=== PATIENT | female | born 1940 | race Caucasian/White ===

== ENCOUNTER → 2016-06-17 | Outpatient (CLI) | payer MEDICARE, OTHER | END | disposition home or self-care (01) | LOC: GMAL 11:07 | PROVIDERS: ATTEND Family Medicine | DX: D51.3 Other dietary vitamin B12 deficiency anemia (principal); E03.9 Hypothyroidism, unspecified; E55.9 Vitamin D deficiency, unspecified ==

== ENCOUNTER → 2016-06-27 | Outpatient (CLI) | payer MEDICARE, OTHER ==
--- NOTE | 2016-06-27 16:44 | MRI ---
EXAM DESCRIPTION: MRI Cervical Spine CLINICAL HISTORY: CERVICALGIA COMPARISON: None. TECHNIQUE: Multiplanar MRI of the cervical spine was performed without contrast. FINDINGS: Cervical vertebral bodies show normal height without compression deformity. Straightening of the normal cervical lordosis. 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 There is desiccation of the disc spaces throughout the cervical spine. Craniocervical junction is maintained. Normal basilar flow void is seen. Probable mild degenerative increased T2 signal changes in the visualized bishnu are noted. Spinal cord shows normal MRI signal. C1-2 and craniocervical junction Unremarkable C2-3 Mild left greater than right facet hypertrophic and degenerative changes are seen. Moderate left and mild right foraminal encroachment is noted. C3-4 Mild left greater than right facet hypertrophic and degenerative changes are seen contributing to moderate to severe left and mild right foraminal encroachment. C4-5 There is mild diffuse disc space narrowing. Mild bilateral facet hypertrophy is seen. Mild left foraminal encroachment seen. C5-6 There is mild diffuse disc space narrowing. A 2 mm broad-based ventral ridging disc osteophyte complex with uncovertebral joint hypertrophy is seen. There is posterior ligamentum flavum thickening. Obliteration of CSF signal from around the spinal cord is noted. There is flattening of the dorsal and ventral surface of the spinal cord that measures 4 mm AP centrally consistent with moderate to severe spinal canal stenosis and mild cord compression. Uncovertebral joint hypertrophy bilaterally contributes to moderate to severe bilateral foraminal encroachment. C6-7 Mild diffuse disc space narrowing is seen with two 3 mm broad-based ventral ridging disc osteophyte complex and mild ligamentum flavum thickening. There is decreased CSF signal from around the spinal cord that measures 5 mm AP potentially consistent with moderate canal stenosis and mild cord compression. Uncovertebral joint hypertrophy results in severe left greater than right foraminal encroachment. C7-T1 Mild bilateral facet hypertrophy without significant spinal canal stenosis or foraminal encroachment. 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 Multilevel disc degenerative changes and facet arthropathy of the cervical spine is seen. Disc disease and ligamentum flavum thickening contributes to at least moderate to severe spinal canal stenosis with cord compression at C5-6. Disc disease and ligamentum flavum thickening contributes to moderate spinal canal stenosis and mild cord compression at C6-7. Multilevel foraminal encroachment is seen as described level by level above secondary to disc disease and facet arthropathy. Electronically signed by: Koko Osborne MD 06/27/2016 4:43 PM [facility]
== END | disposition home or self-care (01) ==
LOC: MRI 09:43
PROVIDERS: ATTEND Family Medicine
DX: M54.2 Cervicalgia (principal)

== ENCOUNTER → 2016-09-20 | Outpatient (CLI) | payer MEDICARE, OTHER | END | disposition home or self-care (01) | LOC: GMAL 14:19 | PROVIDERS: ATTEND Family Medicine | DX: E03.9 Hypothyroidism, unspecified (principal) ==

== ENCOUNTER → 2017-03-29 | Outpatient (CLI) | payer MEDICARE, OTHER ==
--- NOTE | 2017-03-31 11:09 | MAM ---
EXAM DESCRIPTION: 3D Screening BILATERAL : Digital Mammography. CLINICAL HISTORY: 77 years Female SCREENING . No complaints. No family history breast cancer. Postmenopausal. Taking HRT 5 or more years ago. COMPARISON: 2-D digital screening bilateral studies 01/18/2016 and 01/15/2015. Report from prior examination also reviewed. TECHNIQUE: Bilateral CC and MLO projection full-field images, 3-D tomosynthesis digital mammographic technique. Also bilateral synthesized CC/ MLO full-field images. CAD not utilized. FINDINGS: The breast parenchymal density pattern is: Scattered areas of fibroglandular density. No skin thickening or nipple retraction right axillary lymph node. Bilateral solitary microcalcifications. No focal, stellate mass or density, focal asymmetry , and no suspicious microcalcifications bilaterally. Stable mammograms compared to prior studies, taking into account differences in mammographic technique IMPRESSION: BI-RADS CATEGORY: 2 - BENIGN FINDINGS. FOLLOW UP: Routine digital bilateral screening, one year interval from March 2017. Written communication explaining the IMPRESSION and follow-up, will be mailed to the patient and referring health care provider. According to the [employer], yearly mammograms are recommended starting at age 40 and continuing as long as a woman is in good health. Any breast change noted on a breast self-exam should be reported promptly to the patient's healthcare provider. Breast MRI is recommended for women with an approximately 20-25% or greater lifetime risk of breast cancer, including women with a strong family history of breast or ovarian cancer and women who have been treated for Hodgkin's disease. A negative mammographic report should not delay tissue diagnosis in patients with significant clinical history or physical findings. Extremely dense breast tissue limits the sensitivity of digital mammography. Electronically signed by: Denys Fowler MD 03/31/2017 11:08 AM [facility]
== END ==
LOC: MAMMO 12:58
PROVIDERS: ATTEND Family Medicine
DX: Z12.31 Encounter for screening mammogram for malignant neoplasm of breast (principal)
CPT/HCPCS: 77063; G0202

== ENCOUNTER → 2017-08-14 | Outpatient (CLI) | payer MEDICARE, OTHER | LOC: GMAL 13:12 | PROVIDERS: ATTEND Family Medicine | DX: D51.3 Other dietary vitamin B12 deficiency anemia (principal); E55.9 Vitamin D deficiency, unspecified ==

== ENCOUNTER 2017-12-27 05:24 | Day surgery (SDC) | payer MEDICARE, OTHER ==
[2017-12-27] MEDS ORDERED: LACTATED RINGERS 1,000 ML ONE (07:28)
--- NOTE | 2017-12-27 09:45 | OP ---
DATE OF PROCEDURE: 12/27/17 PREOPERATIVE DIAGNOSIS: 1. History of polyps with last colonoscopy in 2011. 2. Incidental indications of constipation, bloating and change in bowel habits. POSTOPERATIVE DIAGNOSIS: 1. Colonic polyps. 2. Diverticulosis PROCEDURE: 1. Colonoscopy plus polypectomies. SURGEON: Louis Son MD. COMPLICATION: There was no true complication, but while sedated, the patient had some mild coughing and retching, but her oxygen saturation was fine throughout the procedure and she was in no cardiopulmonary distress. At the end of the procedure, the patient was fine. BLOOD LOSS: Minimal related to the procedure. MEDICATIONS: Monitored anesthesia care. DESCRIPTION OF PROCEDURE: Informed consent was obtained prior to sedation. The preprocedure cardiopulmonary assessment was satisfactory. The patient was placed in the left lateral decubitus position and was sedated. A digital rectal exam was unremarkable. The tip of the Olympus colonoscope was inserted in the rectum and guided over to the cecum. The cecum was identified by locating the ileocecal valve and appendiceal orifice. There was a little bit of fluid scattered in the colon along with some yellowish foam. I irrigated and suctioned this away. The mucosa of the cecum, ascending colon, hepatic flexure, transverse colon, splenic flexure, descending colon and sigmoid colon was examined. Direct and retroflex views of the rectum were obtained. The ascending colon was also examined with direct and retroflex views due to retroflexion in the cecum. The patient had multiple polyps. They were all sessile and ranged from 2 to 6 mm in size. They were all removed with a cold snare. There were 2 in the ascending colon, 2 in the transverse colon and 6 in the rectosigmoid. Again, they were all removed with a cold snare and recovered. There were sigmoid diverticula. Otherwise, the colonoscopy was unremarkable. RECOMMENDATIONS: 1. Followup the polyp pathology. 2. I do not think she will need a followup colonoscopy for screening purposes due to her age. 3. I would like to see her back in the office in [place] in January. We will see if we can help her with her altered bowel habits, bloating and constipation if these are still issues for her. #[id number] cc: Adelso Alas MD MTDD
[2017-12-27 09:59] VITALS: BP 125/73; TEMP 96.2; O2SAT 89
[2017-12-27] MEDS ORDERED: PROPOFOL 200 MG/20 ML VIAL IV ONE (10:00)
[2017-12-27] MEDS ORDERED: LIDOCAINE 1% 10 ML VIAL INJ ONE (10:00)
== END 2017-12-27 10:15 | disposition home or self-care (01) ==
LOC: AMB 05:24
PROVIDERS: ATTEND Internal Medicine Gastroenterology
DX: Z09 Encounter for follow-up examination after completed treatment for conditions other than malignant neoplasm (principal); D12.7 Benign neoplasm of rectosigmoid junction; D12.2 Benign neoplasm of ascending colon; D12.3 Benign neoplasm of transverse colon; K57.30 Diverticulosis of large intestine without perforation or abscess without bleeding; R19.4 Change in bowel habit; K59.00 Constipation, unspecified; R14.0 Abdominal distension (gaseous); K21.9 Gastro-esophageal reflux disease without esophagitis; J44.9 Chronic obstructive pulmonary disease, unspecified; F17.210 Nicotine dependence, cigarettes, uncomplicated; I10 Essential (primary) hypertension; I25.10 Atherosclerotic heart disease of native coronary artery without angina pectoris; Z86.010 Personal history of colon polyps; Z88.8 Allergy status to other drugs, medicaments and biological substances; Z79.899 Other long term (current) drug therapy
CPT/HCPCS: 00811; 45385; 88305; J3490; J7120

== ENCOUNTER → 2018-03-26 | Outpatient (CLI) | payer MEDICARE, OTHER | LOC: GMAL 11:47 | PROVIDERS: ATTEND Family Medicine | DX: E03.9 Hypothyroidism, unspecified (principal) ==

== ENCOUNTER → 2018-04-02 | Outpatient (CLI) | payer MEDICARE, OTHER ==
--- NOTE | 2018-04-03 17:50 | MAM ---
EXAM DESCRIPTION: 3D Screening BILATERAL : Digital Mammography. CLINICAL HISTORY: 78 years Female SCREENING . No complaints. No personal or family history of breast cancer. Childbirth. Postmenopausal 27 years. Taken HRT 5 or more years ago.. Lifetime risk of developing breast cancer (Tyrer-Cuzick model)(%): 2.4. COMPARISON: Bilateral screening digital breast tomosynthesis 03/29/2017.. TECHNIQUE: Bilateral CC and MLO projection full-field images, digital tomosynthesis mammographic technique. Bilateral digital 2-D full-field MLO images. CAD not available for tomosynthesis or 2-D images. FINDINGS: The breast parenchymal density pattern is: Scattered areas of fibroglandular density. No skin thickening or nipple retraction. Bilateral solitary microcalcifications. Focal asymmetry in the middle third of the left breast at the 12:00 position, 7 cm from the nipple. Not seen on the prior study. Not associated with microcalcifications. No new focal, stellate mass or density, focal asymmetry , and no suspicious microcalcifications right breast. IMPRESSION: BI-RADS CATEGORY: 0 - INCOMPLETE- Need additional imaging evaluation. FOLLOW-UP: Recall for additional imaging: Targeted left breast ultrasound of the region of interest. Additional diagnostic mammographic imaging of the left breast if indicated by ultrasound images.. Written communication concerning the IMPRESSION and Follow-up, will be mailed to the patient and referring health care provider. Electronically signed by: Denys Fowler MD 04/03/2018 5:48 PM [facility]
== END ==
LOC: MAMMO 11:00
PROVIDERS: ATTEND Family Medicine
DX: Z12.31 Encounter for screening mammogram for malignant neoplasm of breast (principal)

== ENCOUNTER → 2018-04-12 | Outpatient (CLI) | payer MEDICARE, OTHER ==
--- NOTE | 2018-04-12 18:56 | US ---
EXAM DESCRIPTION: Breast,Left: Ultrasound CLINICAL HISTORY: 78 yearsFemaleABNORMAL MAMMO COMPARISON: Digital screening tomosynthesis bilateral breasts 04/02/2018. No diagnostic mammogram was performed today. TECHNIQUE: Transcutaneous scanning of the upper mid left breast utilizing renee-scale and Doppler modes. Scanning performed by the frickertron checker only. Remote observation by Dr. Fowler. FINDINGS: Scanning upper middle third left breast. Emphasis on the 12:00 to 1:00 sector of the breast. Heterogeneous fibroglandular and fatty echotexture. No dominant solid mass or distinct cyst. No large calcifications or parenchymal edema. No overlying skin changes. No abnormal vascularity. IMPRESSION: Benign exam. BIRAD CATEGORY: 2 BENIGN FINDINGS. RECOMMENDATIONS: FOLLOW UP: Return to routine digital bilateral mammographic screening, one year interval from March 2018. The FINDINGS and the FOLLOW-UP plan were reviewed in person with the patient by the technologist, after the examination. Written communication explaining the IMPRESSION and FOLLOW-UP will be mailed to the patient and referring care provider. According to the [employer], yearly mammograms are recommended starting at age 40 and continuing as long as a woman is in good health. Any breast change noted on a breast self-exam should be reported promptly to the patient's healthcare provider. Breast MRI is recommended for women with an approximately 20-25% or greater lifetime risk of breast cancer, including women with a strong family history of breast or ovarian cancer and women who have been treated for Hodgkin's disease. A negative mammographic report should not delay tissue diagnosis in patients with significant clinical history or physical findings. Extremely dense breast tissue limits the sensitivity of digital mammography. Electronically signed by: Denys Fowler MD 04/12/2018 6:55 PM [employer]
== END ==
LOC: US 11:00
PROVIDERS: ATTEND Family Medicine
DX: R92.8 Other abnormal and inconclusive findings on diagnostic imaging of breast (principal)

== ENCOUNTER → 2019-04-09 | Outpatient (CLI) | payer MEDICARE, OTHER ==
--- NOTE | 2019-04-11 16:45 | MAM ---
EXAM DESCRIPTION: 3D Screening BILATERAL : Digital Mammography. CLINICAL HISTORY: 79 years Female ANNUAL SCREENING . No complaints. No personal or family history of breast cancer. Menarche age 13. Childbirth age 19. Postmenopausal age 51. HRT 5 or more years ago.. Lifetime risk of developing breast cancer (Tyrer-Cuzick model)(%): 2.2. COMPARISON: Bilateral screening digital breast tomosynthesis third of March 2018. Also March 2017. Ultrasound left breast March 2018. TECHNIQUE: Bilateral CC and MLO projection full-field images, digital tomosynthesis mammographic technique. Bilateral digital 2-D full-field MLO images. CAD not available for tomosynthesis or 2-D images. FINDINGS: The breast parenchymal density pattern is: Scattered areas of fibroglandular density. No skin thickening or nipple retraction. Anterior bilateral solitary microcalcifications. Bilateral fibroglandular pattern is stable. No new focal, stellate mass or density, focal asymmetry , and no suspicious microcalcifications bilaterally. Stable mammograms compared to prior study. IMPRESSION: Benign exam. BIRAD CATEGORY: 2 BENIGN FINDINGS. RECOMMENDATIONS: FOLLOW UP: Routine digital bilateral mammographic screening, one year interval from March 2018. Written communication explaining the IMPRESSION and follow-up, will be mailed to the patient and referring health care provider. According to the [employer], yearly mammograms are recommended starting at age 40 and continuing as long as a woman is in good health. Any breast change noted on a breast self-exam should be reported promptly to the patient's healthcare provider. Breast MRI is recommended for women with an approximately 20-25% or greater lifetime risk of breast cancer, including women with a strong family history of breast or ovarian cancer and women who have been treated for Hodgkin's disease. A negative mammographic report should not delay tissue diagnosis in patients with significant clinical history or physical findings. Extremely dense breast tissue limits the sensitivity of digital mammography. Electronically signed by: Denys Fowler MD 04/11/2019 4:43 PM [employer]
== END ==
LOC: MAMMO 11:06
PROVIDERS: ATTEND Family Medicine
DX: Z12.31 Encounter for screening mammogram for malignant neoplasm of breast (principal)

== ENCOUNTER 2019-04-26 12:44 | Inpatient (IN) | payer MEDICARE, OTHER ==
[2019-04-26] MEDS ORDERED: IPRATROPIUM/ALBUTEROL 3 ML VIAL NEB ONE (12:53)
[2019-04-26] MEDS ORDERED: PIPERACILLIN/TAZOBACTAM 4.5 GM in SODIUM CHLORIDE 0.9% 100ML 100 ML IVPB ONE (13:35)
[2019-04-26] MEDS ORDERED: VANCOMYCIN HCL INJ 1,000 MG in SODIUM CHLORIDE 0.9% 250ML 250 ML IVPB SCH (14:00)
[2019-04-26] MEDS ORDERED: SODIUM CHLORIDE 0.9% 100ML 100 ML IVPB ONE (14:03)
[2019-04-26] MEDS ORDERED: PIPERACILLIN/TAZOBACTAM 2.25 GM VIAL IVPB ONE (14:03)
[2019-04-26] MEDS ORDERED: ACETAMINOPHEN 500 MG TAB PO ONE (14:21)
--- NOTE | 2019-04-26 14:21 | ED.PDOC ---
History of Present Illness - General Chief Complaint: Respiratory Problem Stated Complaint: difficulty breathing Time Seen by Provider: 04/26/19 12:53 Source: patient, RN notes reviewed, Vital Signs reviewed, family - History of Present Illness Comments: Patient presents for evaluation of worsening SOB and coughing that has been worsening over the past two weeks. She notes that she has had fevers. She states that she has finished steroids and multiple abx. Currently has one more day of azithromycin. She has not felt well and has had more dyspnea with exertion. She denies recent sick contacts or hospitalizations. She was seen at her PCP's office today and noted to be hypoxic in upper 80's while sitting. Timing/Duration: week, getting worse Cough Quality/Degree: moderate, productive cough Improving Factors: nothing Worsening Factors: movement Associated Symptoms: cough Allergies/Adverse Reactions: Allergies Atenolol Allergy (Unknown, Verified 08/07/12 07:56) Atorvastatin [From Lipitor] Allergy (Unknown, Verified 08/07/12 07:56) CI Pigment Blue 63 [From Dexilant] Allergy (Unknown, Verified 12/25/17 14:54) Codeine Allergy (Unknown, Verified 12/25/17 14:54) Dexlansoprazole [From Dexilant] Allergy (Unknown, Verified 12/25/17 14:54) Levofloxacin [From Levaquin] Allergy (Unknown, Verified 12/25/17 14:54) Meperidine [From Demerol HCl] Allergy (Unknown, Verified 12/25/17 14:54) Clarithromycin [From Biaxin] Allergy (Verified 12/25/17 14:54) Home Medications: Ambulatory Orders RX: Budesonide-Formoterol Fumarate [Symbicort 160-4.5 Mcg/Act] 1 aer IN BID PRN 08/06/12 RX: Chlorthalidone [Hygroton] 25 mg PO DAILY 08/06/12 RX: Citalopram Hydrobromide [Celexa] 40 mg PO DAILY 08/06/12 RX: Losartan Potassium [Cozaar] 25 mg PO DAILY 08/06/12 RX: Potassium Chloride Tab [K-Dur] 40 meq PO QAM 08/06/12 RX: Rosuvastatin Calcium [Crestor] 10 mg PO BEDTIME 08/06/12 Albuterol Sulfate [Proair Hfa] 1 puff INH BEDTIME PRN 12/25/17 Hydrocodone-Acetaminophen [[place] 5-325 mg] 1 tab PO Q4H PRN 04/26/19 Levothyroxine Sodium [Levoxyl] 112 mcg PO DAILY 04/26/19 Meloxicam 15 mg PO DAILY 04/26/19 RX: Calcium Citrate 200 mg PO DAILY 04/26/19 RX: Omeprazole 20 mg PO DAILY 04/26/19 Review of Systems - Review of Systems Constitutional: States: chills, fever EENTM: States: nose congestion Respiratory: States: cough, short of breath Gastrointestinal/Abdominal: Denies: constipation, vomiting Genitourinary: Denies: frequency Musculoskeletal: Denies: back pain Skin: Denies: rash Neurological: Denies: headache Past Medical History (General) - Patient Medical History Hx Seizures: No Hx Stroke: No Hx Dementia: No Hx Asthma: Yes Hx of COPD: Yes Hx Cardiac Disorders: Yes Hx Congestive Heart Failure: No Hx Pacemaker: No Hx Hypertension: Yes Hx Diabetes: Yes Hx MRSA: No - Social History Hx Alcohol Use: No Hx Substance Use: No Hx Physical Abuse: No Hx Emotional Abuse: No Family Medical History - Family History Mother Family History: Unknown Physical Exam - Physical Exam General Appearance: Alert, Ill Appearing ENT Exam: nasal congestion Neck: full range of motion, supple, normal inspection Respiratory: no respiratory distress, no accessory muscle use, rhonchi Cardiovascular/Chest: normal peripheral pulses, regular rate, rhythm, no edema Gastrointestinal/Abdominal: non tender, soft Extremity: no pedal edema 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 She met SIRS criteria and given source, patient was septic. She was started on vancomycin and zosyn for failed outpatient pneumonia. CBC was significant for leukocytosis that was slightly elevated. There was hypokalemia and hyponatremia on CMP. She was given 1g Tylenol for fever. Patient will be admitted to the floor for further treatment and management. 04/26/19 14:[address] Adams, who accepted patient. Will place admission orders. - Results/Orders Results/Orders: 04/26/19 13:35 BLOOD CULTURE Stat 04/26/19 14:20 ED Intent to Admit Routine Laboratory Results WBC 12.3 K/mm3 (4.8-10.8) H 04/26/19 13:06 RBC 5.14 M/mm3 (4.20-5.40) 04/26/19 13:06 Hgb 14.9 gm/dL (12.0-16.0) 04/26/19 13:06 Hct 44.1 % (36.0-47.0) 04/26/19 13:06 MCV 85.8 fl (81.0-99.0) 04/26/19 13:06 MCH 28.9 pg (27.0-31.0) 04/26/19 13:06 MCHC 33.7 g/dL (33.0-37.0) 04/26/19 13:06 RDW 13.2 % (11.5-14.5) 04/26/19 13:06 Plt Count 250 K/mm3 (130-400) 04/26/19 13:06 MPV 7.8 fl (7.40-10.4) 04/26/19 13:06 Absolute Neuts (auto) Not Reportable 04/26/19 13:06 Absolute Lymphs (auto) Not Reportable 04/26/19 13:06 Absolute Monos (auto) Not Reportable 04/26/19 13:06 Absolute Eos (auto) Not Reportable 04/26/19 13:06 Neutrophils % Not Reportable 04/26/19 13:06 Neutrophils % (Manual) 72.0 % (42.0-78.0) 04/26/19 13:06 Lymphocytes % Not Reportable 04/26/19 13:06 Lymphocytes % (Manual) 17.0 % 04/26/19 13:06 Monocytes % Not Reportable 04/26/19 13:06 Monocytes % (Manual) 6.0 % 04/26/19 13:06 Eosinophils % Not Reportable 04/26/19 13:06 Basophils % Not Reportable 04/26/19 13:06 Band Neutrophils 5.0 % (0-2) H 04/26/19 13:06 Nucleated RBCs 1.0 % 04/26/19 13:06 Platelet Estimate Normal (NORMAL) 04/26/19 13:06 Normal RBC Morphology Normal rbc morph 04/26/19 13:06 Sodium 131 mmol/L (135-145) L 04/26/19 13:06 Potassium 3.1 mmol/L (3.6-5.0) L 04/26/19 13:06 Chloride 94 mmol/L (101-111) L 04/26/19 13:06 Carbon Dioxide 26 mmol/L (21-31) 04/26/19 13:06 Anion Gap 14.1 (12-18) 04/26/19 13:06 BUN 14 mg/dL (7-18) 04/26/19 13:06 Creatinine 0.89 mg/dL (0.6-1.3) 04/26/19 13:06 BUN/Creatinine Ratio 15.7 (10-20) 04/26/19 13:06 Random Glucose 97 mg/dL (70-105) 04/26/19 13:06 Serum Osmolality 263.0 mOsm/L (275-295) L 04/26/19 13:06 Lactic Acid 1.1 mmol/L (0.5-2.2) 04/26/19 13:06 Calcium 9.1 mg/dL (8.4-10.2) 04/26/19 13:06 Total Bilirubin 0.7 mg/dL (0.2-1.0) 04/26/19 13:06 AST 24 IU/L (10-42) 04/26/19 13:06 ALT 28 IU/L (10-60) 04/26/19 13:06 Alkaline Phosphatase 53 IU/L (42-121) 04/26/19 13:06 Serum Total Protein 6.3 gm/dL (6.4-8.2) L 04/26/19 13:06 Albumin 3.7 g/dl (3.2-5.5) 04/26/19 13:06 Globulin 2.6 gm/dL (2.3-3.5) 04/26/19 13:06 Albumin/Globulin Ratio 1.4 (1.1-1.9) 04/26/19 13:06 Departure - Departure Clinical Impression: Pneumonia, Sepsis, Fever, Leukocytosis, Acute respiratory failure with hypoxia Disposition: Admit Patient Condition: Fair Home Medications: Ambulatory Orders RX: Budesonide-Formoterol Fumarate [Symbicort 160-4.5 Mcg/Act] 1 aer IN BID PRN 08/06/12 RX: Chlorthalidone [Hygroton] 25 mg PO DAILY 08/06/12 RX: Citalopram Hydrobromide [Celexa] 40 mg PO DAILY 08/06/12 RX: Losartan Potassium [Cozaar] 25 mg PO DAILY 08/06/12 RX: Potassium Chloride Tab [K-Dur] 40 meq PO QAM 08/06/12 RX: Rosuvastatin Calcium [Crestor] 10 mg PO BEDTIME 08/06/12 Albuterol Sulfate [Proair Hfa] 1 puff INH BEDTIME PRN 12/25/17 Hydrocodone-Acetaminophen [[place] 5-325 mg] 1 tab PO Q4H PRN 04/26/19 Levothyroxine Sodium [Levoxyl] 112 mcg PO DAILY 04/26/19 Meloxicam 15 mg PO DAILY 04/26/19 RX: Calcium Citrate 200 mg PO DAILY 04/26/19 RX: Omeprazole 20 mg PO DAILY 04/26/19
--- NOTE | 2019-04-26 14:48 | HP ---
SUPERVISING PHYSICIAN: Douglas Reddy M.D. CHIEF COMPLAINT: Difficult breathing. HISTORY OF PRESENT ILLNESS: Ms. Moreno is a 79 year-old female patient that presented to the Emergency Department today from the clinic with worsening shortness of breath and coughing over the last 2 weeks. She has also noted that she has had fevers at home and, in fact, she just finished a steroid pack along with a Z-Johan earlier in the week. She noted that she has not gotten any significant improvement in her symptoms and is noted to be hypoxic on room air in the 80s initially. She was x-rayed in the clinic and based off her hypoxia and the x-ray that showed concerning developing bilateral pneumonia, she was sent for evaluation. Her initial laboratory studies showed that she did have a leukocytosis with a developing left shift and 5% bands. Chemistries showed normal lactic acid. She tested negative for Strep and flu in the clinic. Initial vital signs on presentation to the Emergency Department showed that she was running a fever of 100.5 and satting on room air at 86%. After breathing treatments and on oxygen she was showing 94% saturation at 2 liters. Given the fact that she had failed significant treatment course as an outpatient for pneumonia, she is now going to be admitted for more aggressive parenteral antibiotics and a treatment course for bilateral pneumonia. She was admitted in stable condition. PAST MEDICAL HISTORY: 1. Chronic obstructive pulmonary disease in a current smoker in the form of asthma. 2. Hypertension. 3. Chronic tobacco abuse. 4. Gastroesophageal reflux disease. 5. Osteopenia. 6. Hypothyroidism. 7. Anxiety and depression. 8. 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 PAST SURGICAL HISTORY: 1. Appendectomy in 1955. 2. Cataract removal bilateral. 3. Cholecystectomy in 2008. 4. Tonsillectomy in 1957. 5. Tubal ligation in 1968. 6. Last echocardiogram in 2017 showed a grade 2 diastolic dysfunction with an ejection fraction of 65%. HOME MEDICATIONS: 1. [place] 5/325 one tablet every 4 hours p.r.n. 2. Omeprazole 20 mg daily. 3. Meloxicam 15 mg daily. 4. Crestor 10 mg at bedtime. 5. K-Dur 40 mEq daily. 6. Losartan 25 mg daily. 7. Celexa 40 mg daily. 8. Chlorthalidone 25 mg daily. 9. Calcium supplement 200 mg daily. 10. Symbicort b.i.d. 11. Albuterol inhalers as needed at bedtime. 12. Levothyroxine 112 mcg daily. ALLERGIES: ATENOLOL, LIPITOR, CI PIGMENT BLUE 63, CODEINE, DEXILANT, LEVAQUIN, MEPERIDINE AND CLARITHROMYCIN. FAMILY HISTORY: Father at age 81 from a brainstem stroke. Mother at age 65 from congestive heart failure. She had complications of diabetes with gangrene of the feet. She has 1 sister who has congestive heart failure, cardiovascular disease, diabetes and asthma. She has another sister that is age 55 that of Down's Syndrome. She has 1 brother secondary to hypertension and congestive heart failure and another brother from advanced emphysema. 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 She is . She is a current smoker who smokes 1 to 5 cigarettes per day but has smoked up to 2 packs per day since age 22. She denies any alcohol or illicit drug use. REVIEW OF SYSTEMS: CONSTITUTIONAL: Positive for general malaise, fevers, chills. HEENT: Positive for nasal congestion. Negative for earaches, sore throat, headaches, vision changes. RESPIRATORY: As noted in History of Present Illness, increasing cough, shortness of breath. CARDIOVASCULAR: Denies any chest pains, palpitations or syncopal episodes. GASTROINTESTINAL: Denies any nausea, vomiting, diarrhea or constipation. GENITOURINARY: Denies any dysuria, hematuria, polyuria. MUSCULOSKELETAL: Denies any joint swelling, arthralgias or chronic back pain. SKIN: Denies any lesions, rashes, moles or unexplained changes. NEUROLOGIC: Denies any headaches, vision changes, ataxia, seizures or other focal deficits. HEMATOLOGIC: Denies any easy bruising, unexplained bleeding or transfusion reactions. PHYSICAL EXAMINATION: VITAL SIGNS: Initially in the Emergency Room showed she was running a temperature of 100.5, pulse 67, blood pressure 134/74, respirations 24, satting 86% on room air, satting at 94% on nasal cannula at 2 liters after breathing treatments. Admission weight 74.7 kg. GENERAL: The patient does appear unwell and tired, but in no acute distress. She is alert. HEENT: There is notable nasal congestion. Oropharynx is pink, moist without any lesions. NECK: Supple, nontender with full range of motion. No jugular venous distention noted. RESPIRATORY: Lung sounds are diminished to auscultation with obvious inspiratory and expiratory wheezing with rhonchi heard bilaterally to the bases. CARDIOVASCULAR: Regular rate and rhythm without a notable murmurs, gallops, or rubs. ABDOMEN: Soft, nontender. Positive bowel sounds. EXTREMITIES: Without any edema. NEUROLOGIC: She is alert and oriented times three. Cranial nerves II-XII are grossly intact. Facial features are symmetrical. Extraocular movements are within normal limits. There is no nystagmus noted. SKIN: Warm, pink and dry. LABORATORY: Leukocytosis with a white count of 12,300, hemoglobin 14.9, hematocrit 44.1. Differential showing a left shift with 5% bands. Chemistries showed a low sodium at 131, potassium 3.1, carbon dioxide 26, BUN 14, creatinine 0.89, lactic acid normal at 1.1. Liver function are within normal limits. Urinalysis just showed a trace of intact blood. MICROBIOLOGY: Sputum culture is pending. Strep and flu were done in the clinic prior to the Emergency Room visit which were reportedly negative. She has 2 blood cultures that are pending. RADIOLOGY: Per radiology interpretation of 2 view chest in the clinic this morning before sent to the Emergency Room showed bilateral pneumonia. ASSESSMENT: 1. Chronic obstructive pulmonary disease exacerbation with bilateral pneumonia, community acquired, having failed to respond to outpatient treatment measures. 2. Sepsis due to #1 with leukocytosis and bandemia with the patient being tachypneic and running a fever on admission. 3. Electrolyte imbalance to include hyponatremia and hypokalemia. 4. Hypertension. 5. Chronic tobacco abuse in a chronic smoker. 6. Gastroesophageal reflux disease. 7. Hypothyroidism on supplementation. 8. Anxiety and depression. 9. 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 PLAN: Ms. Moreno is going to be admitted for treatment of pneumonia bilateral having failed to respond to outpatient treatment measures with azithromycin. Given that she is a smoker and failed fairly aggressive treatment plan and has an allergy to fluoroquinolones, I think she warrants coverage for a Pseudomonas given that she has a history of antibiotic usage and she is a smoker, so therefore will start her on Cefepime and also cover for Methicillin resistant Staphylococcus aureus with vancomycin. Will go ahead and start her on some doxycycline to cover for atypicals as well as put her on some Tamiflu given that she is running a fever, although her flu was negative in the clinic given that she is 79 years of age and a significant risk for complications. I will also put her on some steroids given the fact that she was significantly decreased and wheezing on admission with a history of chronic obstructive pulmonary disease and a current smoker. Will put her on nicotine patch. Will have her on deep venous thrombosis prophylaxis per protocol. Will resume her home medications once those have been updated and verified. Will start her on aggressive pulmonary hygiene with DuoNeb updraft treatments and inhaled steroids in the form of Pulmicort. Anticipate her length of stay to be at least 2 to 3 days. Will reassess in the morning with labs and x-rays. Until we can transition to outpatient management will continue to monitor and treat as needed. #[id number] [facility]
[2019-04-26] MEDS ORDERED: MAGNESIUM HYDROXIDE 30 ML UD PO PRN (15:15)
[2019-04-26] MEDS ORDERED: ALBUTEROL SULFATE 2.5 MG/3 ML VIAL NEB PRN (15:15)
[2019-04-26] MEDS ORDERED: ACETAMINOPHEN 325 MG TAB PO PRN (15:15)
[2019-04-26] MEDS ORDERED: SODIUM CHLORIDE 0.9% (FLUSH) 10 ML SYG IV PRN (15:15)
[2019-04-26] MEDS ORDERED: ONDANSETRON INJ 4 MG/2 ML VIAL IV PRN (15:15)
[2019-04-26] MEDS ORDERED: IV SET AND CAP CHANGE INJ INJ SCH (15:30)
[2019-04-26] MEDS ORDERED: VANCOMYCIN PER PHARMACY IVPB SCH (16:00)
[2019-04-26] MEDS ORDERED: methylPREDNISolone SODIUM SUC 125 MG/2 ML VIAL IV ONE (16:20)
[2019-04-26] MEDS: IPRATROPIUM/ALBUTEROL 3 ML VIAL INH SCH ×2 (16:45→20:31)
[2019-04-26] MEDS ORDERED: SODIUM CHLORIDE 0.9% 250ML 250 ML ONE ×2 (17:34→20:03)
[2019-04-26] MEDS ORDERED: VANCOMYCIN HCL INJ 500 MG VIAL ONE (17:34)
[2019-04-26] MEDS ORDERED: VANCOMYCIN HCL INJ 1,000 MG VIAL IVPB ONE (17:35)
[2019-04-26] MEDS: VANCOMYCIN HCL INJ 1,000 MG, VANCOMYCIN HCL INJ 500 MG in SODIUM CHLORIDE 0.9% 250ML 25... IVPB SCH (17:42)
[2019-04-26] MEDS: KCL 20 MEQ/NS 1,000 ML IVS PRN (17:43)
[2019-04-26] MEDS ORDERED: DOXYCYCLINE HYCLATE IV 100 MG VIAL IVPB ONE (20:03)
[2019-04-26] MEDS ORDERED: CEFEPIME 2 GM VIAL ONE (20:03)
[2019-04-26] MEDS ORDERED: SODIUM CHL 0.9% 50ML MIN-BAG+ 50 ML IVPB ONE (20:03)
[2019-04-26] MEDS ORDERED: methylPREDNISolone SODIUM SUC 125 MG/2 ML VIAL ONE ×2 (20:04)
[2019-04-26] MEDS: NICOTINE PATCH 14 MG TD SCH (20:12)
[2019-04-26] MEDS: BUDESONIDE NEBS 0.5 MG/2 ML INH NEB SCH (20:31)
[2019-04-26] MEDS: ENOXAPARIN SODIUM 40 MG/0.4 ML SYG SUBCU SCH (20:58)
[2019-04-26] MEDS: OSELTAMIVIR 75 MG CAP PO SCH (20:58)
[2019-04-26] MEDS: guaiFENesin ER TAB 600 MG TAB PO SCH (20:58)
[2019-04-26] MEDS: DOXYCYCLINE HYCLATE IV 100 MG in SODIUM CHLORIDE 0.9% 250ML 250 ML IVPB SCH (20:58)
[2019-04-26] MEDS: CEFEPIME 2 GM in SODIUM CHL 0.9% 50ML MIN-BAG+ 50 ML IVPB SCH (23:15)
[2019-04-27] MEDS: methylPREDNISolone SODIUM SUC 125 MG/2 ML VIAL IV SCH ×4 (00:21→17:54)
--- NOTE | 2019-04-27 07:54 | RAD ---
EXAM DESCRIPTION: Chest x-ray two views: CLINICAL HISTORY: Pneumonia COMPARISON: August 10, 2012 TECHNIQUE: PA and lateral views of the chest were obtained. FINDINGS: The heart is normal in size . The hilar and mediastinal structures are within normal limits. The pulmonary vascularity is normal . The lung tomas are free of any active pulmonary parenchymal or pleural disease. Mild peribronchial thickening and reactive airway changes are noted. Right apical pleural thickening is seen. The bony structures are unremarkable. IMPRESSION: No active disease. Electronically signed by: Jesusita Bailey MD 04/27/2019 7:53 AM VETERIN[employer]IAN EPIDEMIOLOGIST
[2019-04-27] MEDS ORDERED: SODIUM CHLORIDE 0.9% 250ML 250 ML ONE ×3 (08:06→20:12)
[2019-04-27] MEDS ORDERED: DOXYCYCLINE HYCLATE IV 100 MG VIAL IVPB ONE ×2 (08:07→20:13)
[2019-04-27] MEDS: POTASSIUM CHLORIDE 20 MEQ TAB PO SCH (08:22)
[2019-04-27] MEDS: OSELTAMIVIR 75 MG CAP PO SCH ×2 (08:23→20:49)
[2019-04-27] MEDS: LEVOTHYROXINE SODIUM 0.112 MG TAB PO SCH (08:25)
[2019-04-27] MEDS: LOSARTAN POTASSIUM 25 MG TAB PO SCH (08:25)
[2019-04-27] MEDS: MELOXICAM 7.5 MG TAB PO SCH (08:26)
[2019-04-27] MEDS: OMEPRAZOLE CAP 20 MG CAP PO SCH (08:26)
[2019-04-27] MEDS: NICOTINE PATCH 14 MG TD SCH (08:27)
[2019-04-27] MEDS: guaiFENesin ER TAB 600 MG TAB PO SCH ×2 (08:27→20:49)
[2019-04-27] MEDS: DOXYCYCLINE HYCLATE IV 100 MG in SODIUM CHLORIDE 0.9% 250ML 250 ML IVPB SCH ×2 (08:27→20:49)
[2019-04-27] MEDS: BIFIDOBACTERIUM INFANTIS 4 MG CAP PO SCH (08:29)
[2019-04-27] MEDS: CITALOPRAM HBR 20 MG TAB PO SCH (08:29)
[2019-04-27] MEDS: IPRATROPIUM/ALBUTEROL 3 ML VIAL INH SCH ×3 (08:46→16:00)
[2019-04-27] MEDS: BUDESONIDE NEBS 0.5 MG/2 ML INH NEB SCH (08:46)
--- NOTE | 2019-04-27 12:01 | PN ---
DATE: 04/27/19 SUPERVISING PHYSICIAN: Douglas Reddy M.D. SUBJECTIVE: The patient reports that she had a fairly rough night, that she had some significant episodes of shortness of breath. In the room you can tell that she is obviously wheezing because you can hear it as soon as you walk in the room. She has had no nausea or vomiting. Denies any diarrhea or chest pains. OBJECTIVE: VITAL SIGNS: Temperature 98.5, pulse 69, blood pressure 124/76, respirations 18, satting 95% on 2 liters nasal cannula. Weight is 75.9 kg. GENERAL: The patient does appear unwell. She is a little anxious but is in no acute distress. CHEST: Lung sounds are diminished throughout with inspiratory and expiratory wheezing. HEART: Regular rate and rhythm. ABDOMEN: Soft, non-tender. Positive bowel sounds. EXTREMITIES: Without any edema. NEUROLOGIC: She is alert and oriented times three. LABORATORY: White count has normalized to 9,300. Differential does show a left shift. Hemoglobin 14.3, hematocrit 42.9. Chemistries now show normal electrolytes with BUN 14, creatinine 0.86, calcium 8.1. Urinalysis just showed trace of intact blood. MICROBIOLOGY: Sputum culture is pending. Blood culture is pending. RADIOLOGY: Repeat chest x-ray this morning per radiology interpretation shows mild peribronchial thickening and reactive airway changes. ASSESSMENT: 1. Chronic obstructive pulmonary disease exacerbation with bilateral pneumonia, community acquired, having failed to respond to outpatient treatment measures. 2. Sepsis due to #1 with leukocytosis and bandemia with the patient being tachypneic and running a fever on admission. 3. Electrolyte imbalance to include hyponatremia and hypokalemia, resolved. 4. Hypertension. 5. Chronic tobacco abuse in a chronic smoker. 6. Gastroesophageal reflux disease. 7. Hypothyroidism on supplementation. 8. Anxiety and depression. 9. 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 PLAN: Will continue with current plan of care with azithromycin and Rocephin, although there is not any active consolidations or pneumonia evidence on chest x-ray. Clinically she has some mild respiratory distress and is significantly decreased in her aeration of her lungs. I still think she is at high risk for a bacterial infection, including Pseudomonas or possibly Methicillin resistant Staphylococcus aureus. She does remain on Tamiflu given that she is running a fever and her advanced age, and risk factors for complications. I am going to go ahead and continue with some steroids every 6 hours for 3 doses at 60 mg as well as Pulmicort. She remains on aggressive pulmonary hygiene. I will also keep her on vancomycin for Methicillin resistant Staphylococcus aureus coverage and doxycycline for any atypicals given that she has been on multiple doses of azithromycin and Cefepime, again for broader coverage empirically. I anticipate probably another 48 hours as she is showing slow clinical improvement and is advanced age and has severe chronic obstructive pulmonary disease. Until we can transition her to outpatient management will continue to monitor and treat as needed. #[id number] [facility]
[2019-04-27] MEDS ORDERED: SODIUM CHL 0.9% 50ML MIN-BAG+ 50 ML IVPB ONE ×2 (12:12→20:12)
[2019-04-27] MEDS ORDERED: CEFEPIME 2 GM VIAL ONE ×2 (12:12→20:13)
[2019-04-27] MEDS: CEFEPIME 2 GM in SODIUM CHL 0.9% 50ML MIN-BAG+ 50 ML IVPB SCH ×2 (12:17→23:11)
[2019-04-27] MEDS: BENZONATATE PERLES 100 MG CAP PO SCH ×3 (12:17→20:49)
[2019-04-27] MEDS: KCL 20 MEQ/NS 1,000 ML IVS PRN (15:01)
[2019-04-27] MEDS ORDERED: VANCOMYCIN HCL INJ 500 MG VIAL ONE (16:53)
[2019-04-27] MEDS ORDERED: VANCOMYCIN HCL INJ 1,000 MG VIAL IVPB ONE (16:53)
[2019-04-27] MEDS: VANCOMYCIN HCL INJ 1,000 MG, VANCOMYCIN HCL INJ 500 MG in SODIUM CHLORIDE 0.9% 250ML 25... IVPB SCH (17:19)
[2019-04-27] MEDS: ENOXAPARIN SODIUM 40 MG/0.4 ML SYG SUBCU SCH (20:49)
[2019-04-27] MEDS ORDERED: NON-FORMULARY MEDICATION 1 EA MIS (Rosuvastatin Calcium [Crestor] 10 MG) PO SCH (21:00)
[2019-04-28] MEDS: methylPREDNISolone SODIUM SUC 125 MG/2 ML VIAL IV SCH (00:25)
[2019-04-28] MEDS: KCL 20 MEQ/NS 1,000 ML IVS PRN (05:16)
[2019-04-28] MEDS: OMEPRAZOLE CAP 20 MG CAP PO SCH (06:06)
[2019-04-28] MEDS: LEVOTHYROXINE SODIUM 0.112 MG TAB PO SCH (06:06)
[2019-04-28] MEDS: POTASSIUM CHLORIDE 20 MEQ TAB PO SCH (07:21)
[2019-04-28] MEDS ORDERED: SODIUM CHLORIDE 0.9% 250ML 250 ML ONE (08:06)
[2019-04-28] MEDS ORDERED: DOXYCYCLINE HYCLATE IV 100 MG VIAL IVPB ONE (08:07)
[2019-04-28] MEDS: IPRATROPIUM/ALBUTEROL 3 ML VIAL INH SCH ×2 (08:44→12:40)
[2019-04-28] MEDS: BUDESONIDE NEBS 0.5 MG/2 ML INH NEB SCH (08:44)
[2019-04-28] MEDS: OSELTAMIVIR 75 MG CAP PO SCH (08:51)
[2019-04-28] MEDS: MELOXICAM 7.5 MG TAB PO SCH (08:51)
[2019-04-28] MEDS: BENZONATATE PERLES 100 MG CAP PO SCH ×2 (08:52→15:38)
[2019-04-28] MEDS: LOSARTAN POTASSIUM 25 MG TAB PO SCH (08:52)
[2019-04-28] MEDS: NICOTINE PATCH 14 MG TD SCH (08:52)
[2019-04-28] MEDS: guaiFENesin ER TAB 600 MG TAB PO SCH (08:52)
[2019-04-28] MEDS: BIFIDOBACTERIUM INFANTIS 4 MG CAP PO SCH (08:52)
[2019-04-28] MEDS: CITALOPRAM HBR 20 MG TAB PO SCH (08:52)
[2019-04-28] MEDS: DOXYCYCLINE HYCLATE IV 100 MG in SODIUM CHLORIDE 0.9% 250ML 250 ML IVPB SCH (08:52)
[2019-04-28] MEDS ORDERED: SODIUM CHL 0.9% 50ML MIN-BAG+ 50 ML IVPB ONE (10:49)
[2019-04-28] MEDS ORDERED: CEFEPIME 2 GM VIAL ONE (10:50)
[2019-04-28] MEDS: CEFEPIME 2 GM in SODIUM CHL 0.9% 50ML MIN-BAG+ 50 ML IVPB SCH (10:55)
[2019-04-28 12:56] VITALS: BP 173/87; TEMP 98.4
[2019-04-28] MEDS ORDERED: CEFDINIR 300 MG CAP PO ONE (15:09)
[2019-04-28] MEDS ORDERED: DOXYCYCLINE HYCLATE CAP 100 MG CAP PO ONE (15:09)
[2019-04-28] MEDS ORDERED: predniSONE 20 MG TAB PO ONE (15:10)
[2019-04-28] MEDS ORDERED: predniSONE 20 MG TAB ONE (15:16)
[2019-04-28] MEDS ORDERED: DOXYCYCLINE HYCLATE CAP 100 MG CAP ONE (15:16)
[2019-04-28] MEDS ORDERED: CEFDINIR 300 MG CAP ONE (15:16)
[2019-04-28 15:40] VITALS: O2SAT 99
[2019-04-28] MEDS ORDERED: SIMVASTATIN 20 MG TAB PO SCH (21:00)
--- NOTE | 2019-05-05 21:07 | DS ---
SUPERVISING PHYSICIAN: Douglas Reddy M.D. ADMISSION DIAGNOSIS: 1. Chronic obstructive pulmonary disease exacerbation with bilateral pneumonia, community acquired, having failed to respond to outpatient treatment measures. 2. Sepsis due to #1 with leukocytosis and bandemia with the patient being tachypneic and running a fever on admission. 3. Electrolyte imbalance to include hyponatremia and hypokalemia. 4. Hypertension. 5. Chronic tobacco abuse in a chronic smoker. 6. Gastroesophageal reflux disease. 7. Hypothyroidism on supplementation. 8. Anxiety and depression. 9. 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 DISCHARGE DIAGNOSIS: 1. Chronic obstructive pulmonary disease with exacerbation with bilateral pneumonia, community acquired, having initially failed outpatient treatment plan showing good response to parenteral antibiotics, now stable. 2. Sepsis due to #1 with leukocytosis and bandemia with the patient being tachypneic and running a fever on admission, resolved with treatment. 3. Electrolyte imbalance to include hyponatremia and hypokalemia, resolved. 4. Hypertension. 5. Chronic tobacco abuse in a chronic smoker. 6. Gastroesophageal reflux disease. 7. Hypothyroidism on supplementation. 8. Anxiety and depression. 9. 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 REASON FOR HOSPITALIZATION: Ms. Moreno is a 79 year-old female patient that presented to the Emergency Department today from the clinic with worsening shortness of breath and coughing over the last 2 weeks. She has also noted that she has had fevers at home and, in fact, she just finished a steroid pack along with a Z-Johan earlier in the week. She noted that she has not gotten any significant improvement in her symptoms and is noted to be hypoxic on room air in the 80s initially. She was x-rayed in the clinic and based off her hypoxia and the x-ray that showed concerning developing bilateral pneumonia, she was sent for evaluation. Her initial laboratory studies showed that she did have a leukocytosis with a developing left shift and 5% bands. Chemistries showed normal lactic acid. She tested negative for Strep and flu in the clinic. Initial vital signs on presentation to the Emergency Department showed that she was running a fever of 100.5 and satting on room air at 86%. After breathing treatments and on oxygen she was showing 94% saturation at 2 liters. Given the fact that she had failed significant treatment course as an outpatient for pneumonia, she is now going to be admitted for more aggressive parenteral antibiotics and a treatment course for bilateral pneumonia. She was admitted in stable condition. LABORATORY: White count on admission was 12,300. Did show a left shift with 5% bands. After treatment prior to discharge CBC normalized with a resolving left shift. It was no longer showing any bands. Chemistries on admission did show sodium 131, potassium 3.1, prior to discharge had normalized. Creatinine at discharge was 0.86. Lactic acid 1.1, calcium 8.8. Liver functions all were within normal limits. Urinalysis just showed a trace of intact blood. MICROBIOLOGY: Blood cultures are negative after 5 days. Final sputum culture showed a few mixed normal respiratory дмитрий. RADIOLOGY: Chest x-ray showed no active disease. HOSPITAL COURSE: Ms. Moreno was admitted for exacerbation of chronic obstructive pulmonary disease with concerns for developing bilateral pneumonia, although her x-ray was not showing any actual infiltrates. She was requiring O2 via nasal cannula and is not normally on oxygen. She was started on treatment with parenteral antibiotics which included Cefepime and vancomycin due to the fact that she had failed outpatient treatment with azithromycin and was allergic to fluoroquinolones. She was also given Tamiflu for concerns for Influenza A and B, although it was showing to be negative prior to admission from the clinic. She was put on steroids and titrated to oral steroids as well as given Pulmicort. She was able to show good clinical improvement and was no longer requiring oxygen, showing 100% nasal cannula at 2 liters and maintaining room air at 92% with ambulation. It was felt that she had clinically improved enough to continue with outpatient management. PLAN: Ms. Moreno was discharged on 04/28/19 with instructions to followup with Dr. Alas in 7 days. She was to resume her home medications as instructed and told to return to the hospital should she have any concerning symptoms. Diet at discharge was regular diet as tolerated. Activity is as tolerated. Medications prescribed on discharge included: 1. Align 4 mg daily. 2. Cefdinir 300 mg twice daily, #10. 3. Doxycycline 100 mg every 12 hours, #10. No refills. 4. Medrol Dosepak 4 mg taper, 6 days, #21. No refills. Take as directed. All other medications prior to admission were continued. DISPOSITION: The patient was discharged home. Condition on discharge was stable and improved. #[id number] [facility]
== END 2019-04-28 15:50 | disposition home or self-care (01) | DRG 871 ==
LOC: ER 12:44 → MS 14:47 → OBSVTOIN 14:47
PROVIDERS: ADMIT Nurse Practitioner Family; ATTEND Nurse Practitioner Family
DX: A41.9 Sepsis, unspecified organism (principal); J18.9 Pneumonia, unspecified organism; J44.1 Chronic obstructive pulmonary disease with (acute) exacerbation; J96.01 Acute respiratory failure with hypoxia; E87.1 Hypo-osmolality and hyponatremia; J44.0 Chronic obstructive pulmonary disease with (acute) lower respiratory infection; E87.6 Hypokalemia; E87.8 Other disorders of electrolyte and fluid balance, not elsewhere classified; I10 Essential (primary) hypertension; F17.210 Nicotine dependence, cigarettes, uncomplicated; K21.9 Gastro-esophageal reflux disease without esophagitis; E03.9 Hypothyroidism, unspecified; F41.9 Anxiety disorder, unspecified; F32.9 Major depressive disorder, single episode, unspecified; E11.9 Type 2 diabetes mellitus without complications; I49.3 Ventricular premature depolarization; M85.80 Other specified disorders of bone density and structure, unspecified site; Z88.1 Allergy status to other antibiotic agents; Z88.3 Allergy status to other anti-infective agents; Z88.5 Allergy status to narcotic agent; Z88.8 Allergy status to other drugs, medicaments and biological substances; Z79.1 Long term (current) use of non-steroidal anti-inflammatories (NSAID); Z79.51 Long term (current) use of inhaled steroids; Z79.891 Long term (current) use of opiate analgesic; Z79.899 Other long term (current) drug therapy

== ENCOUNTER → 2019-05-30 | Outpatient (CLI) | payer MEDICARE, OTHER | LOC: GMAL 14:33 | PROVIDERS: ATTEND Family Medicine | DX: E03.9 Hypothyroidism, unspecified (principal); I10 Essential (primary) hypertension; R73.9 Hyperglycemia, unspecified; E78.49 Other hyperlipidemia ==

== ENCOUNTER → 2020-04-14 | Outpatient (CLI) | payer MEDICARE, OTHER ==
--- NOTE | 2020-04-15 20:07 | MAM ---
EXAM DESCRIPTION: 3D Screening BILATERAL : Digital Mammography. 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 No complaints. No family history of breast cancer. Menarche age 13. Childbirth age 19. Menopause age 51. HRT 5 or more years ago.. Lifetime risk of developing breast cancer (Tyrer-Cuzick model)(%): 2.0. COMPARISON: Bilateral screening digital breast tomosynthesis March 2019 and March 2018. TECHNIQUE: Bilateral CC and MLO projection full-field images, digital tomosynthesis mammographic technique. Bilateral digital 2-D full-field MLO images. CAD available for 2-D images. FINDINGS: The breast parenchymal density pattern is: Scattered areas of fibroglandular density. Solitary microcalcifications.. Axillary nodes. No skin thickening or nipple retraction No new focal, stellate mass or density, focal asymmetry , and no suspicious microcalcifications bilaterally. Stable mammograms compared to prior study. IMPRESSION: Benign exam. BIRAD CATEGORY: 2 BENIGN FINDINGS. RECOMMENDATIONS: FOLLOW UP: Routine digital bilateral mammographic screening, one year interval from March 2020. Written communication explaining the IMPRESSION and follow-up, will be mailed to the patient and referring health care provider. According to the [employer], yearly mammograms are recommended starting at age 40 and continuing as long as a woman is in good health. Any breast change noted on a breast self-exam should be reported promptly to the patient's healthcare provider. Breast MRI is recommended for women with an approximately 20-25% or greater lifetime risk of breast cancer, including women with a strong family history of breast or ovarian cancer and women who have been treated for Hodgkin's disease. A negative mammographic report should not delay tissue diagnosis in patients with significant clinical history or physical findings. Extremely dense breast tissue limits the sensitivity of digital mammography. Electronically signed by: Denys Fowler MD 04/15/2020 8:06 PM [facility]
== END ==
LOC: MAMMO 10:51
PROVIDERS: ATTEND Family Medicine
DX: Z12.31 Encounter for screening mammogram for malignant neoplasm of breast (principal)

== ENCOUNTER 2020-04-26 21:52 | Emergency (ER) | payer MEDICARE, OTHER ==
[2020-04-26] MEDS ORDERED: ONDANSETRON INJ 4 MG/2 ML VIAL IV ONE (22:12)
[2020-04-26] MEDS ORDERED: SODIUM CHLORIDE 0.9% (FLUSH) 10 ML SYG IV PRN (22:12)
[2020-04-26] MEDS ORDERED: ASPIRIN TABLET 325 MG TAB PO ONE (22:12)
--- NOTE | 2020-04-26 22:15 | ED.PDOC ---
History of Present Illness - General Chief Complaint: Chest Pain/TX Stated Complaint: chest pain x's 2 days Time Seen by Provider: 04/26/20 21:53 Source: patient, RN notes reviewed, Vital Signs reviewed Exam Limitations: no limitations - History of Present Illness Initial Comments: 80 yo F with hx HTN comes in with three days of left sided chest pain that is worse with deep breaths. Current smoker, does have a cough. no fever. no prior TX. denies dyspnea, abd pain, n/v/d. Allergies/Adverse Reactions: Allergies Atenolol Allergy (Unknown, Verified 08/07/12 07:56) Atorvastatin [From Lipitor] Allergy (Unknown, Verified 08/07/12 07:56) CI Pigment Blue 63 [From Dexilant] Allergy (Unknown, Verified 12/25/17 14:54) Codeine Allergy (Unknown, Verified 12/25/17 14:54) Dexlansoprazole [From Dexilant] Allergy (Unknown, Verified 12/25/17 14:54) Levofloxacin [From Levaquin] Allergy (Unknown, Verified 12/25/17 14:54) Meperidine [From Demerol HCl] Allergy (Unknown, Verified 12/25/17 14:54) Clarithromycin [From Biaxin] Allergy (Verified 12/25/17 14:54) Home Medications: Ambulatory Orders Budesonide-Formoterol Fumarate [Symbicort 160-4.5 Mcg/Act] 1 aer IN BID PRN 08/06/12 Chlorthalidone [Hygroton] 25 mg PO DAILY 08/06/12 Citalopram Hydrobromide [Celexa] 40 mg PO DAILY 08/06/12 Losartan Potassium [Cozaar] 25 mg PO DAILY 08/06/12 Potassium Chloride Tab [K-Dur] 40 meq PO QAM 08/06/12 Rosuvastatin Calcium [Crestor] 10 mg PO BEDTIME 08/06/12 Albuterol Sulfate [Proair Hfa] 1 puff INH BEDTIME PRN 12/25/17 Calcium Citrate 200 mg PO DAILY 04/26/19 Hydrocodone-Acetaminophen [[place]cadia 5-325 mg] 1 tab PO Q4H PRN 04/26/19 Levothyroxine Sodium [Levoxyl] 112 mcg PO DAILY 04/26/19 Meloxicam 15 mg PO DAILY 04/26/19 Omeprazole 20 mg PO DAILY 04/26/19 Bifidobacterium Infantis [Align] 4 mg PO DAILY cap 04/28/19 Cefdinir [Omnicef] 300 mg PO BID #10 cap 04/28/19 Doxycycline Hyclate [Vibramycin] 100 mg PO Q12H #10 cap 04/28/19 Methylprednisolone [Medrol Dose Johan] 4 mg PO DAILY 6 Days #21 tab 04/28/19 Prednisone 20 mg PO BID #10 tab 04/27/20 Review of Systems - Review of Systems Constitutional: Denies: chills, fever, malaise EENTM: Denies: blurred vision, throat pain, mouth pain Respiratory: States: cough. Denies: wheezing Cardiology: States: chest pain. Denies: palpitations, syncope Gastrointestinal/Abdominal: Denies: abdominal pain, nausea, vomiting Genitourinary: Denies: frequency Musculoskeletal: Denies: back pain, muscle pain, neck pain Skin: Denies: rash Neurological: Denies: headache, numbness, paresthesia Endocrine: Denies: unexplained weight gain, unexplained weight loss Hematologic/Lymphatic: Denies: blood clots, easy bleeding, easy bruising Past Medical History (General) - Patient Medical History Hx Seizures: No Hx Stroke: No Hx Dementia: No Hx Asthma: Yes Hx of COPD: Yes Hx Cardiac Disorders: Yes Hx Congestive Heart Failure: No Hx Pacemaker: No Hx Hypertension: Yes Hx Thyroid Disease: No Hx Diabetes: Yes Hx Gastroesophageal Reflux: No Hx Renal Disease: No Hx of HIV: No Hx MRSA: No Surgical History: noncontributory - Social History Hx Alcohol Use: No Hx Substance Use: No Hx Physical Abuse: No Hx Emotional Abuse: No Family Medical History - Family History Mother Family History: Unknown Physical Exam - Physical Exam General Appearance: Alert, Comfortable, No apparent distress, Well Developed, Well Groomed, Well Hydrated, Well Nourished Eyes, Ears, Nose, Throat Exam: PERRL/EOMI, normal ENT inspection, other - hard of hearing Neck: non-tender, full range of motion, supple, normal inspection Respiratory: chest non-tender, lungs clear, normal breath sounds, no respiratory distress, no accessory muscle use Cardiovascular/Chest: normal peripheral pulses, regular rate, rhythm, no edema, no gallop, no JVD, no murmur Peripheral Pulses: radial,right: 2+, radial,left: 2+ Gastrointestinal/Abdominal: normal bowel sounds, non tender, soft Rectal Exam: deferred Extremity: normal range of motion, non-tender, normal inspection, no pedal edema, no calf tenderness, normal capillary refill 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 The data reviewed when caring for this patient included: nurse notes, prior records, etc. The history and assessments from [facility] notes were reviewed and considered, and the patient's home medication list was also reviewed and considered. My assessment and the results of testing completed here in the ED were discussed with the patient/family. All questions were answered, and they express understanding of my assessment and the plan. They have been instructed to return if their symptoms worsen, and have been asked to follow up with their primary care physician to recheck today's presenting complaint. Strict return precautions given. I have reviewed medication, benefits, alternatives and side effects. Patient decided to proceed with medication. Kinga Mancilla DO #[id number] - Results/Orders Results/Orders: 04/26/20 22:12 Sodium Chloride 0.9% (Flush) [Saline Flush Syringe] 10 ml IV PRN PRN 04/26/20 22:13 IV Care:Saline Lock per Protoc QSHIFT Telemetry .ONCE EKG Assessment ONCE EKG Stat Pulse Ox Stat Pulse Oximetry Assessment DAILY Laboratory Results WBC 9.7 K/mm3 (4.8-10.8) 04/26/20 22:25 RBC 5.05 M/mm3 (4.20-5.40) 04/26/20 22:25 Hgb 14.4 gm/dL (12.0-16.0) 04/26/20 22:25 Hct 42.5 % (36.0-47.0) 04/26/20 22:25 MCV 84.0 fl (81.0-99.0) 04/26/20 22:25 MCH 28.5 pg (27.0-31.0) 04/26/20 22:25 MCHC 33.9 g/dL (33.0-37.0) 04/26/20 22:25 RDW 13.4 % (11.5-14.5) 04/26/20 22:25 Plt Count 250 K/mm3 (130-400) 04/26/20 22:25 MPV 7.8 fl (7.40-10.4) 04/26/20 22:25 Absolute Neuts (auto) 4.60 K/uL (1.8-6.8) 04/26/20 22:25 Absolute Lymphs (auto) 3.50 K/uL (1.0-3.4) H 04/26/20 22:25 Absolute Monos (auto) 1.30 K/uL (0.2-0.8) H 04/26/20 22:25 Absolute Eos (auto) 0.30 K/uL (0.0-0.4) 04/26/20 22:25 Absolute Basos (auto) 0.10 K/uL (0.0-0.1) 04/26/20 22:25 Neutrophils % 47.0 % (42.0-78.0) 04/26/20 22:25 Lymphocytes % 35.6 % (20.0-50.0) 04/26/20 22:25 Monocytes % 13.0 % (2.0-9.0) H 04/26/20 22:25 Eosinophils % 3.5 % (1.0-5.0) 04/26/20 22:25 Basophils % 0.9 % (0.0-2.0) 04/26/20 22:25 PT 10.9 SECONDS (9.0-10.9) 04/26/20 22:25 INR 1.10 (0.9-1.15) 04/26/20 22:25 PTT (SP) 24.7 SECONDS (21.8-31.6) 04/26/20 22:25 D-Dimer, Quantitative 191.0 ng/ml (131-400) 04/26/20 22:25 Sodium 139 mmol/L (135-145) 04/26/20 22:25 Potassium 4.1 mmol/L (3.6-5.0) 04/26/20 22:25 Chloride 99 mmol/L (101-111) L 04/26/20 22:25 Carbon Dioxide 30 mmol/L (21-31) 04/26/20 22:25 Anion Gap 14.1 (12-18) 04/26/20 22:25 BUN 14 mg/dL (7-18) 04/26/20 22:25 Creatinine 0.88 mg/dL (0.6-1.3) 04/26/20 22: BUN/Creatinine Ratio 15.9 (10-20) 04/26/20 22:25 Random Glucose 108 mg/dL (70-105) H 04/26/20 22:25 Serum Osmolality 278.5 mOsm/L (275-295) 04/26/20 22:25 Calcium 9.1 mg/dL (8.4-10.2) 04/26/20 22:25 Magnesium 1.7 mg/dL (1.8-2.5) L 04/26/20 22:25 Total Bilirubin 0.3 mg/dL (0.2-1.0) 04/26/20 22: Direct Bilirubin 0.1 mg/dL (0-0.2) 04/26/20 22: Indirect Bilirubin 0.2 mg/dL (0.2-0.8) 04/26/20 22:25 AST 17 IU/L (10-42) 04/26/20 22:25 ALT 16 IU/L (10-60) 04/26/20 22:25 Alkaline Phosphatase 79 IU/L (42-121) 04/26/20 22:25 Creatine Kinase 63 IU/L (26-140) 04/26/20 22:25 CK-MB (CK-2) 1.7 ng/mL (0.0-4.4) 04/26/20 22:25 CK-MB (CK-2) % Not Reportable 04/26/20: Troponin I < 0.02 ng/mL (0.01-0.05) 04/26/20 22: B-Natriuretic Peptide 92.5 pg/ml (0-100) 04/26/20 22:25 Serum Total Protein 6.4 gm/dL (6.4-8.2) 04/26/20 22: Albumin 3.8 g/dl (3.2-5.5) 04/26/20 22:25 - EKG/XRAY/CT EKG: Sinus - Hr 84, nonspecific ST T wave Chg Comments: prolong qt, other intervals wnl. other than qt no sign change from prior XRAY: chest - no acute cardiopulmonary pathology Departure - Departure Clinical Impression: Pleuritic chest pain Disposition: Discharge to Home or Self Care Departure Forms: ED Discharge - Pt. Copy, Patient Portal Self Enrollment Instructions: DI for Chest Pain, Pleuritic Chest Pain, Chest Pain Diet: resume usual diet Activity: increase activity as tolerated Referrals: Adelso Alas III, MD [Primary Care Provider] - 1-2 Days Prescriptions: Prednisone 20 mg PO BID #10 tab Home Medications: Ambulatory Orders Budesonide-Formoterol Fumarate [Symbicort 160-4.5 Mcg/Act] 1 aer IN BID PRN 08/06/12 Chlorthalidone [Hygroton] 25 mg PO DAILY 08/06/12 Citalopram Hydrobromide [Celexa] 40 mg PO DAILY 08/06/12 Losartan Potassium [Cozaar] 25 mg PO DAILY 08/06/12 Potassium Chloride Tab [K-Dur] 40 meq PO QAM 08/06/12 Rosuvastatin Calcium [Crestor] 10 mg PO BEDTIME 08/06/12 Albuterol Sulfate [Proair Hfa] 1 puff INH BEDTIME PRN 12/25/17 Calcium Citrate 200 mg PO DAILY 04/26/19 Hydrocodone-Acetaminophen [[place]cadia 5-325 mg] 1 tab PO Q4H PRN 04/26/19 Levothyroxine Sodium [Levoxyl] 112 mcg PO DAILY 04/26/19 Meloxicam 15 mg PO DAILY 04/26/19 Omeprazole 20 mg PO DAILY 04/26/19 Bifidobacterium Infantis [Align] 4 mg PO DAILY cap 04/28/19 Cefdinir [Omnicef] 300 mg PO BID #10 cap 04/28/19 Doxycycline Hyclate [Vibramycin] 100 mg PO Q12H #10 cap 04/28/19 Methylprednisolone [Medrol Dose Johan] 4 mg PO DAILY 6 Days #21 tab 04/28/19 Prednisone 20 mg PO BID #10 tab 04/27/20
--- NOTE | 2020-04-26 22:59 | RAD ---
EXAM DESCRIPTION: Chest,1 View CLINICAL HISTORY: cp COMPARISON: 04/27/2019 FINDINGS: Single frontal radiograph view of the chest. Cardiomediastinal silhouette: Atherosclerotic calcification thoracic aorta. Heart is not enlarged. Lungs: Stable mild chronic appearing interstitial opacities. No acute focal airspace consolidation, pneumothorax, or pleural effusion. Bones: No acute osseous abnormality. Upper abdomen: No abnormality identified. IMPRESSION: 1. No acute pneumonic process. Electronically signed by: Jorden New 04/26/2020 10:58 PM [facility]
[2020-04-26] MEDS ORDERED: DEXAMETHASONE INJ 10 MG/ML VIAL IV ONE (23:01)
[2020-04-27 00:55] VITALS: BP 143/67; TEMP 97.1; O2SAT 95
== END 2020-04-27 00:45 | disposition home or self-care (01) ==
LOC: ER 21:52
DX: R07.1 Chest pain on breathing (principal); I45.81 Long QT syndrome; R05 Cough; I51.9 Heart disease, unspecified; J44.9 Chronic obstructive pulmonary disease, unspecified; I10 Essential (primary) hypertension; F17.200 Nicotine dependence, unspecified, uncomplicated; Z20.828 Contact with and (suspected) exposure to other viral communicable diseases; Z79.899 Other long term (current) drug therapy; Z88.8 Allergy status to other drugs, medicaments and biological substances; Z88.5 Allergy status to narcotic agent; Z88.1 Allergy status to other antibiotic agents
CPT/HCPCS: 71045; 80048; 80076; 82550; 82553; 83880; 84484; 85025; 85379; 85610; 85730; 87635; 93005; J1100; J2405

== ENCOUNTER 2020-06-22 05:26 | Day surgery (SDC) | payer MEDICARE, OTHER ==
[2020-06-22] MEDS ORDERED: MOXIFLOXACIN HCL (OPHTH) 1 DROP DROPS ONE (05:42)
[2020-06-22] MEDS ORDERED: PROPARACAINE 0.5% OPHTH SOL 15 ML BTTL ONE (05:42)
[2020-06-22] MEDS ORDERED: TROP1%/CYCLOPEN 1%/PHENYL 2.5% DROPS ONE (05:43)
== END 2020-06-22 07:08 | disposition home or self-care (01) ==
LOC: AMB 05:26
PROVIDERS: ATTEND Ophthalmology
DX: H26.492 Other secondary cataract, left eye (principal); I10 Essential (primary) hypertension; Z88.6 Allergy status to analgesic agent; Z88.8 Allergy status to other drugs, medicaments and biological substances; Z79.899 Other long term (current) drug therapy